=== PATIENT | male | born 2000 | race Caucasian/White ===

== ENCOUNTER 2018-06-16 11:57 | Emergency (ER) | payer OTHER ==
[~2018-06-16] VITALS: Ht 177.8 cm; Wt 75.0 kg
[2018-06-16 13:07] VITALS: BP 111/67
== END 2018-06-16 14:26 | disposition home or self-care (01) ==
LOC: ER 11:58
DX: S93.402A Sprain of unspecified ligament of left ankle, initial encounter (principal); V09.9XXA Pedestrian injured in unspecified transport accident, initial encounter; Y93.89 Activity, other specified; Y92.488 Other paved roadways as the place of occurrence of the external cause; Y99.8 Other external cause status
CPT/HCPCS: 73610; 73630; 99283